=== PATIENT | male | born 1965 | race Caucasian/White ===

== ENCOUNTER 2017-04-17 06:30 | Emergency (ER) | payer SELFPAY ==
[2017-04-17 06:30] VITALS: BMI 31.6
[2017-04-17 06:43] VITALS: RESP 18
[2017-04-17 08:19] LABS: BASO % 0.5 % (0.0-2.0); EOS % 0.1 % (0.0-4.0); HEMOGLOBIN 14.5 g/dL (12.0-18.0); LYMPH # 0.8 K/uL (1.0-4.3); LYMPH % 13.1 % (20.0-40.0); MEAN CORPUSCULAR HEMOGLOBIN 30.1 pg (27.0-31.0); MEAN CORPUSCULAR HGB CONC 33.8 g/dL (33.0-37.0); MEAN PLATELET VOLUME 7.8 fL (7.2-11.7); MONO # 0.4 K/uL (0.0-0.8); MONO % 6.7 % (0.0-10.0); NEUT % 79.6 % (50.0-75.0); RBC 4.8 Mil/uL (4.40-5.90); RED CELL DISTRIBUTION WIDTH 13.8 % (11.5-14.5); WHITE BLOOD COUNT 6.2 K/uL (4.8-10.8)
[2017-04-17 08:28] LABS: SQUAMOUS EPITHIAL < 1 /hpf (0-5); URINE BILIRUBIN NEGATIVE (NEGATIVE); URINE CLARITY Clear (Clear); URINE COLOR Colorless (YELLOW); URINE GLUCOSE (UA) NORMAL (Normal); URINE LEUKOCYTE ESTERASE NEG Leu/uL (Negative); URINE PROTEIN NEGATIVE (NEGATIVE); URINE UROBILINOGEN NORMAL mg/dL (0.2-1.0)
--- NOTE | 2017-04-17 08:28 | RAD ---
Chest x-ray single frontal view History: Shortness of breath. Comparison: 01/23/2016 Findings: No focal infiltrate or effusion. Heart size within normal limits. Impression No focal infiltrate or effusion.
[2017-04-17 08:31] LABS: INR 1.2; PROTHROMBIN TIME 13.2 SECONDS (9.7-12.2)
[2017-04-17 08:39] LABS: ALB/GLOB RATIO 1.2 (1.0-2.1); ALBUMIN 4.5 g/dL (3.5-5.0); ALT/SGPT 30 U/L (21-72); AST/SGOT 30 U/L (17-59); BLOOD UREA NITROGEN 12 mg/dL (9-20); CALCIUM 9.7 mg/dl (8.6-10.4); GFR AFRICAN-AMERICAN > 60; GFR NON-AFRICAN AMERICAN > 60
[2017-04-17 08:41] LABS: CK-MB 0.49 ng/mL (0.0-3.38)
[2017-04-17 08:55] LABS: URINE BLOOD 2+ (NEGATIVE)
[2017-04-17 09:58] VITALS: TEMP 98; O2SAT 98
--- NOTE | 2017-04-17 10:42 | C.PDOC ---
History Of Present Illness 51yo male, presents to ER with complaints of a "twitching" sensation on his left chest muscle. Patient states he felt such spasms after he was shoveling snow last week. He also reports feeling very anxious due to his chest discomfort. He currently denies any chest pain and states he has not had chest pain in the past as well. He denies any shortness of breath, radiation of pain to arms, weakness. No other complaints. Time Seen by Provider: 04/17/17 07:28 Chief Complaint (Nursing): Chest Pain History Per: Patient History/Exam Limitations: no limitations Onset/Duration Of Symptoms: Days Current Symptoms Are (Timing): Still Present Quality: Other (twitching) Associated Symptoms: denies: Nausea Past Medical History Reviewed: Historical Data, Nursing Documentation, Vital Signs Vital Signs: Last Vital Signs Temp 98 F 04/17/17 11:00 Pulse 78 04/17/17 11:00 Resp 18 04/17/17 11:00 BP 126/69 04/17/17 11:00 Pulse Ox 98 04/17/17 11:00 - Medical History PMH: Anxiety, HTN Surgical History: Cholecystectomy Family History: States: Diabetes - Social History Hx Tobacco Use: No Hx Alcohol Use: No Hx Substance Use: No - Immunization History Hx Tetanus Toxoid Vaccination: No Hx Influenza Vaccination: Yes Hx Pneumococcal Vaccination: No Review Of Systems Except As Marked, All Systems Reviewed And Found Negative. Constitutional: Negative for: Fever, Weakness Cardiovascular: Positive for: Other (chest wall muscle spasms). Negative for: Chest Pain Respiratory: Negative for: Shortness of Breath Psych: Positive for: Anxiety Physical Exam - Physical Exam Appears: Non-toxic, Other (anxious appearing, emotional) Skin: Normal Color Head: Normacephalic Eye(s): bilateral: Normal Inspection Oral Mucosa: Moist Neck: Normal ROM, Supple Chest: Symmetrical, Tenderness (reproducible left chest wall tenderness) Cardiovascular: Rhythm Regular (tachycardic) Respiratory: Normal Breath Sounds, No Wheezing Extremity: Normal ROM (bilateral upper extremities), No Tenderness Neurological/Psych: Oriented x3, Normal Speech, Normal Cognition, Normal Motor, Normal Sensation ED Course And Treatment - Laboratory Results Result Diagrams: 04/17/17 08:14 04/17/17 08:14 ECG: Interpreted By Me, Viewed By Me ECG Rhythm: Sinus Tachycardia ECG Interpretation: No Acute Changes Rate From EC O2 Sat by Pulse Oximetry: 98 (RA) Pulse Ox Interpretation: Normal - Other Rad CXR X-Ray: Read By Radiologist Interpretation: Chest x-ray single frontal view. History: Shortness of breath. Comparison: 01/23/2016. Findings: No focal infiltrate or effusion. Heart size within normal limits. Impression. No focal infiltrate or effusion. Progress Note: Patient given Aspirin 325 mg; labs including cardiac enzymes and urinalysis ordered and reviewed. Labs with no acute findings. Patient informed of well exam and no acute findings in labs. After informing patient of findings , his heart rate and blood pressure both decreased and he reports feeling much better. Patient stable for discharge home, advised to follow up with PCP in 2-3 days. Disposition - Disposition Referrals: Singh Robin MD [Primary Care Provider] - Disposition: HOME/ ROUTINE Disposition Time: 10:43 Condition: STABLE Additional Instructions: Follow up with PMD within 1-2 days. Return to ED if feel worse. Prescriptions: Aspirin [Aspirin Chewable] 81 mg PO DAILY #30 ctb Instructions: Anxiety, Adult (DC) Forms: [email or web address] (Polish), Work Excuse - Clinical Impression Clinical Impression: Muscle twitching, Anxiety - PA / [employer]IST / Resident Statement MD/DO has reviewed & agrees with the documentation as recorded. - Scribe Statement The provider has reviewed the documentation as recorded by the Scribe (Karla Silva) Provider Attestation: All medical record entries made by the Scribe were at my direction and personally dictated by me. I have reviewed the chart and agree that the record accurately reflects my personal performance of the history, physical exam, medical decision making, and the department course for this patient. I have also personally directed, reviewed, and agree with the discharge instructions and disposition.
[2017-04-17 11:00] VITALS: BP 126/69; PULSE 78
--- NOTE | 2017-04-19 12:38 | CARD ---
APPROVED REPORT EKG Measurement Heart [id number] <Conclusion> Sinus tachycardia Possible Left atrial enlargement Borderline ECG
== END 2017-04-17 11:00 | disposition home or self-care (01) ==
LOC: SUPCPDRO 06:30 → C.ER 06:30
DX: F41.9 Anxiety disorder, unspecified (principal); R25.3 Fasciculation; I10 Essential (primary) hypertension